=== PATIENT | female | born 1965 ===

== ENCOUNTER 2022-04-27 17:06 | Emergency (ER) | payer OTHER ==
[~2022-04-27] VITALS: Ht 177.8 cm; Wt 78.5 kg
[~2022-04-27 17:06] MED LIST: ASA81 MG; CARAFATE SU1 G/10 ML PO; LOVENOX30 MG/0.3 SUBCUTANEO; PEPCID40 MG PO; PERCOCET 5/3251 TAB PO; SYNTHROID50 MCG
== END 2022-04-27 21:46 | disposition home or self-care (01) ==
LOC: ER 17:06
DX: M25.532 Pain in left wrist (principal); M79.644 Pain in right finger(s); W18.30XA Fall on same level, unspecified, initial encounter; Y93.89 Activity, other specified; Y92.018 Other place in single-family (private) house as the place of occurrence of the external cause; Y99.9 Unspecified external cause status; Z91.013 Allergy to seafood